=== PATIENT | female | born 1985 | race Caucasian/White ===

== ENCOUNTER 2017-04-12 08:06 | Inpatient (IN) ==
[2017-04-12] MEDS ORDERED: Ondansetron 4 MG/2 ML VIAL IVP ONE (08:32)
[2017-04-12] MEDS ORDERED: 0.9 % Sodium Chloride 1,000 ML IVC ONE (08:32)
--- NOTE | 2017-04-12 08:36 | Emergency Department Note ---
Disposition Clinical Impression: Pyelonephritis Disposition: Admitted As Inpatient Condition: Fair Referrals: Viraj Bear CNP [Primary Care Provider] - Forms: ED Satisfaction Letter Time of Disposition: 09:40 Female Urogenital HPI - General Chief complaint: ED Urogenital-Female Stated complaint: vomiting,side pain Time Seen by Provider: 04/12/17 08:22 Source: patient Mode of arrival: private vehicle Limitations: no limitations Nursing Notes Reviewed: Yes Vital Signs Reviewed: Yes - History of Present Illness HPI Narrative: 32-year-old female presents emergency department for evaluation of right flank pain. Patient developed symptoms of nausea approximately one week ago. She checked her urine and it was found to show evidence of urinary tract infection. Culture was positive for Escherichia coli and she was started on Cipro. The patient then developed right flank pain and had a CT scan of the abdomen done on Saturday of this past week which showed no evidence of hydronephrosis or obstructive uropathy. Patient was given a dose of Rocephin yesterday. Patient continues to have nausea vomiting associated with her symptoms. She states she has been running a low-grade fever of 99.9. She states she has had for urinary tract infections in the last year. - Related Data Home Medications Medication Instructions Recorded Confirmed Ibuprofen [Motrin] 800 mg PO TID PRN 05/01/16 04/12/17 Albuterol Sulfate [Proair Hfa] 2 puff IH Q4H PRN 05/02/16 04/12/17 Previous Rx's Medication Instructions Recorded Ciprofloxacin [Cipro] 500 mg PO BID #14 tablet 05/03/16 Allergies Allergy/AdvReac Type Severity Reaction Status Date / Time Sulfa (Sulfonamide Allergy Rash Verified 05/02/16 03:34 Antibiotics) Review of Systems: Constitutional: See history of present illness positive for fever HENT: [Negative for congestion.] Eyes: [Negative for discharge.] Respiratory: [Negative for shortness of breath.] Cardiovascular: [Negative for chest pain.] Gastrointestinal: Positive for nausea vomiting, right flank pain. Negative for diarrhea Endocrine: [Negative for excessive thirst,urination] Genitourinary: See history of present illness Musculoskeletal: [Negative for myalgias and arthralgias.] Skin: [Negative for rash.] Neurological: [Negative for dizziness, localized weakness and headaches.] Psychiatric/Behavioral: [Negative for nervous/anxious.] All other systems reviewed and are negative. Past Medical History - Past Medical History Medical history: Reports: asthma, kidney stones Surgical history: Reports: orthopedic, other Psychiatric history: Reports: PTSD [employer]IST history: Reports: other - Social History Smoking Status: Never smoker Smokeless Tobacco Status: No Alcohol use: Reports: occasionally Drug use: Reports: none Physical Exam Constitutional: Patient is [alert], [healthy], [comfortable] and cooperative. . The patient appears [asymptomatic], [nontoxic], and mildly ill. HENT: Head: Normocephalic and atraumatic. Right Ear: External ear normal. Left Ear: External ear normal. Nose: Nose normal. Mouth/Throat: Oropharynx is clear and mucous membranes show mild dehydration Eyes: Conjunctivae and EOM are normal. Pupils are equal, round, and reactive to light. Right eye exhibits [no] discharge. Left eye exhibits [no] discharge. Neck: Trachea is midline, normal range of motion and [phonation normal]. Neck supple. Cardiovascular: [Regular rhythm], S1 normal, S2 normal, normal heart sounds and intact distal pulses. Exam reveals no gallop and no friction rub. No murmur heard. [Capillary refill is brisk.] [Peripheral pulses are 2+] Pulmonary/Chest: Effort [normal] No stridor. [No] tachypnea. [No] respiratory distress. There are [no] decreased breath sounds. [There no wheezes, no rhonchi , or rales.] Abdominal: Soft. [Bowel sounds are normal]. There exhibits [no] distension and [no] mass. There is no hepatosplenomegaly. There is right upper quadrant tenderness, right CVA tenderness. There is [no rigidity, no rebound, no guarding]. Musculoskeletal: Normal range of motion of uninvolved extremities. There exhibits [no edema]. [ ] Neurological: Patient is alert. Patient displays no atrophy and no tremor. No cranial nerve deficit and exhibits normal muscle tone. Coordination normal. Skin: Skin is warm and dry. No rash noted. No erythema. [Skin color is normal.} Psychiatric: Patient has a normal mood and affect. Course Course Narrative: Time of physician change blood work and urinalysis still pending. I will transfer care to Dr. Ghotra who referred her to review the blood work and then speak with Dr. Loco about potential admission for intractable vomiting Vital Signs Temperature 98.5 F 04/12/17 08:14 Pulse Rate 68 04/12/17 08:14 Respiratory Rate 16 04/12/17 08:14 Blood Pressure 150/87 04/12/17 08:14 O2 Sat by Pulse Oximetry 100 04/12/17 08:14 Temperature 98.5 F 04/12/17 08:14 Pulse Rate 68 04/12/17 08:14 Respiratory Rate 16 04/12/17 08:14 Blood Pressure 150/87 04/12/17 08:14 O2 Sat by Pulse Oximetry 100 04/12/17 08:14 Oxygen Delivery Oxygen Delivery Room Air Urogenital-Female - Lab Data Result diagrams: 04/12/17 08:40 04/12/17 08:40 Lab Results 04/12/17 04/12/17 04/12/17 Range/Units 08:40 08:40 08:40 WBC 10.5 (4.3-11.1) K/mcL RBC 4.68 (3.82-4.97) M/mcL Hgb 15.3 (11.5-15.4) g/dL Hct 41.7 (35.3-44.9) % MCV 89.1 (83.0-100.0) fL MCH 32.7 (28.0-33.3) pg MCHC 36.7 H (31.6-35.5) g/dL RDW 11.9 (11.5-14.5) % Plt Count 217 (140-400) K/mcL MPV 10.7 (9.4-12.4) fL Immature Gran % 0.3 (0-4) % Seg Neutrophils % 73.8 % Lymphocytes % 14.5 % Monocytes % 10.2 % Eosinophils % 1.0 % Basophils % 0.2 % Neutrophils # 7.8 (1.6-8.9) K/mcL Lymphocytes # 1.5 (0.6-4.6) K/mcL Monocytes # 1.1 (0.0-1.3) K/mcL Eosinophils # 0.1 (0.0-0.6) K/mcL Basophils # 0.0 (0.0-0.2) K/mcL VBG Lactic Acid (0.5-2.2) mmol/L Sodium 141 (136-145) mEq/L Potassium 3.7 (3.5-4.5) mEq/L Chloride 107 (98-109) mEq/L Carbon Dioxide 23 (19-29) mEq/L BUN 16 (7-20) mg/dL Creatinine 1.93 H D (0.57-1.11) mg/dL Est GFR ( Amer) 36 L (> 60) Est GFR (Non-Af Amer) 30 L (> 60) BUN/Creatinine Ratio 8 (6-26) Glucose 93 (70-99) mg/dL Calculated Osmolality 293 (280-300) Calcium 9.3 (8.6-10.8) mg/dL Total Bilirubin 0.8 (0.2-1.2) mg/dL AST 19 (5-34) Units/L ALT 12 (0-55) Units/L Alkaline Phosphatase 51 (38-126) Units/L Serum Total Protein 7.0 (6.0-8.3) g/dL Albumin 4.2 (3.5-5.0) g/dL Globulin 2.8 (2.4-3.5) g/dL Albumin/Globulin Ratio 1.5 (1.1-2.2) Urine Color Yellow (Yellow) Urine Clarity Clear (Clear) Urine pH 6.0 (5.0-8.0) pH Units Ur Specific [place] 1.010 (1.010-1.025) Urine Protein Trace (Neg-Trace) mg/dL Urine Glucose (UA) Normal (Normal) mg/dL Urine Ketones 15 H (Negative) mg/dL Urine Blood Negative (Negative) Urine Nitrite Negative (Negative) Urine Bilirubin Negative (Negative) Urine Urobilinogen Normal (Normal) mg/dL Ur Leukocyte Esterase Negative (Negative) Ur Culture Indicated? NO (NO) Urine Test (Negative) 04/12/17 04/12/17 Range/Units 08:40 09:07 WBC (4.3-11.1) K/mcL RBC (3.82-4.97) M/mcL Hgb (11.5-15.4) g/dL Hct (35.3-44.9) % MCV (83.0-100.0) fL MCH (28.0-33.3) pg MCHC (31.6-35.5) g/dL RDW (11.5-14.5) % Plt Count (140-400) K/mcL MPV (9.4-12.4) fL Immature Gran % (0-4) % Seg Neutrophils % % Lymphocytes % % Monocytes % % Eosinophils % % Basophils % % Neutrophils # (1.6-8.9) K/mcL Lymphocytes # (0.6-4.6) K/mcL Monocytes # (0.0-1.3) K/mcL Eosinophils # (0.0-0.6) K/mcL Basophils # (0.0-0.2) K/mcL VBG Lactic Acid 1.6 (0.5-2.2) mmol/L Sodium (136-145) mEq/L Potassium (3.5-4.5) mEq/L Chloride (98-109) mEq/L Carbon Dioxide (19-29) mEq/L BUN (7-20) mg/dL Creatinine (0.57-1.11) mg/dL Est GFR ( Amer) (> 60) Est GFR (Non-Af Amer) (> 60) BUN/Creatinine Ratio (6-26) Glucose (70-99) mg/dL Calculated Osmolality (280-300) Calcium (8.6-10.8) mg/dL Total Bilirubin (0.2-1.2) mg/dL AST (5-34) Units/L ALT (0-55) Units/L Alkaline Phosphatase (38-126) Units/L Serum Total Protein (6.0-8.3) g/dL Albumin (3.5-5.0) g/dL Globulin (2.4-3.5) g/dL Albumin/Globulin Ratio (1.1-2.2) Urine Color (Yellow) Urine Clarity (Clear) Urine pH (5.0-8.0) pH Units Ur Specific [place] (1.010-1.025) Urine Protein (Neg-Trace) mg/dL Urine Glucose (UA) (Normal) mg/dL Urine Ketones (Negative) mg/dL Urine Blood (Negative) Urine Nitrite (Negative) Urine Bilirubin (Negative) Urine Urobilinogen (Normal) mg/dL Ur Leukocyte Esterase (Negative) Ur Culture Indicated? (NO) Urine Test Negative (Negative) - Radiology Data Radiology results reviewed: Yes I reviewed the patient's radiology results. CT scan report from Saturday04/10/2017 CT/CT abd pelvis wo no iv no oral IMPRESSION: Moderate amount of free pelvic fluid suspected to be from recent ovulation. Normal appendix. No right-sided renal calculus. 2 nonobstructing left renal calculi unchanged from the prior study. No other significant abnormality.
[2017-04-12 08:51] LABS: Basophils % 0.2 %; Eosinophils # 0.1 K/mcL (0.0-0.6); Hematocrit 41.7 % (35.3-44.9); Hemoglobin 15.3 g/dL (11.5-15.4); Immature Granulocytes % 0.3 % (0-4); Lymphocytes # 1.5 K/mcL (0.6-4.6); Lymphocytes % 14.5 %; Mean Corpuscular HGB Conc 36.7 g/dL (31.6-35.5); Mean Corpuscular Hemoglobin 32.7 pg (28.0-33.3); Mean Corpuscular Volume 89.1 fL (83.0-100.0); Mean Platelet Volume 10.7 fL (9.4-12.4); Monocytes # 1.1 K/mcL (0.0-1.3); Monocytes % 10.2 %; Neutrophils # 7.8 K/mcL (1.6-8.9); Platelet Count 217 K/mcL (140-400); Red Blood Count 4.68 M/mcL (3.82-4.97); Red Cell Distribution Width 11.9 % (11.5-14.5); Segmented Neutrophils % 73.8 %
[2017-04-12 08:54] LABS: Bilirubin,Urine Negative (Negative); Blood,Urine Negative (Negative); Clarity,Urine Clear (Clear); Color,Urine Yellow (Yellow); Glucose,Urine (UA) Normal (Normal); Ketones,Urine 15 mg/dL (Negative); Leukocyte Esterase,Urine Negative (Negative); Nitrite,Urine Negative (Negative); Protein,Urine Trace mg/dL (Neg-Trace); Urobilinogen,Urine Normal (Normal)
[2017-04-12] MEDS ORDERED: Ketorolac 30 MG/ML VIAL IVP ONE (08:56)
[2017-04-12 09:19] LABS: Albumin 4.2 g/dL (3.5-5.0); Albumin/Globulin Ratio 1.5 (1.1-2.2); Bilirubin,Total 0.8 mg/dL (0.2-1.2); Calcium 9.3 mg/dL (8.6-10.8); Globulin 2.8 g/dL (2.4-3.5); Potassium 3.7 mEq/L (3.5-4.5)
[2017-04-12] MEDS ORDERED: Naloxone 0.4 MG/ML INJ IVP PRN (10:23)
--- NOTE | 2017-04-12 10:40 | Emergency Department Note ---
Disposition Clinical Impression: Pyelonephritis Disposition: Admitted As Inpatient Condition: Fair Referrals: Viraj Bear CNP [Primary Care Provider] - Forms: ED Satisfaction Letter Female Urogenital HPI - General Chief complaint: ED Urogenital-Female Stated complaint: vomiting,side pain Time Seen by Provider: 04/12/17 08:22 Source: patient Mode of arrival: private vehicle Limitations: no limitations Nursing Notes Reviewed: Yes Vital Signs Reviewed: Yes - History of Present Illness HPI Narrative: Care was assumed by me at shift change. Please see Dr. Holley note. Ms. Marcelino tells me that last Saturday she had some right sided abdominal and flank pain felt feverish and nauseated. 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 (Indeed that sample did grow out Escherichia coli 100,000 sensitive to Cipro among others.) She was prescribed ciprofloxacin and continued to take the Cipro at 250 mg twice a day but yesterday had increased nausea and vomiting. She has had 3 times emesis with very little by mouth intake. Because she was not tolerating by mouth intake she received an injection of Rocephin last night around 7 PM in the office where she works. She continues to be nauseated even after 4 mg IV here in the emergency department. She also had a abdominal pelvic CAT scan done as an outpatient here couple of days ago which was unremarkable for any right sided pathology. Incidental note was made of a calcification in the left kidney. One year ago she had a 5 mm stone retrieved. She has been having issues with 2 times a year urinary tract infections for the last 10 years or so. She rarely if ever has any classic symptoms of cystitis such as urgency dysuria or frequency. She did have the passage of some gross visible blood on urination just a couple of days ago. She denies any diarrhea. She tells me that she actually has issues with constipation. - Related Data Home Medications Medication Instructions Recorded Confirmed Ibuprofen [Motrin] 800 mg PO TID PRN 05/01/16 04/12/17 Albuterol Sulfate [Proair Hfa] 2 puff IH Q4H PRN 05/02/16 04/12/17 Previous Rx's Medication Instructions Recorded Ciprofloxacin [Cipro] 500 mg PO BID #14 tablet 05/03/16 Allergies Allergy/AdvReac Type Severity Reaction Status Date / Time Sulfa (Sulfonamide Allergy Rash Verified 05/02/16 03:34 Antibiotics) Constitutional: Reports: chills Gastrointestinal: Reports: abdominal pain, nausea, vomiting, constipation. Denies: diarrhea Genitourinary: Reports: hematuria. 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 Absent: distention, guarding, rebound, rigidity, Jensen's sign Abdominal tenderness: Absent: RUQ - Extremities Exam Extremities exam: Present: normal inspection. Absent: pedal edema - Back Exam Back exam: Present: CVA tenderness (R). Absent: CVA tenderness (L) - Neurological Exam Neurological exam: Present: alert - Psychiatric Psychiatric exam: Present: normal affect, normal mood - Skin Skin exam: Present: warm, dry Course Vital Signs Temperature 98.5 F 04/12/17 08:14 Pulse Rate 68 04/12/17 08:14 Respiratory Rate 16 04/12/17 08:14 Blood Pressure 150/87 04/12/17 08:14 O2 Sat by Pulse Oximetry 100 04/12/17 08:14 Temperature 98.5 F 04/12/17 08:14 Pulse Rate 68 04/12/17 08:14 Respiratory Rate 16 04/12/17 08:14 Blood Pressure 150/87 04/12/17 08:14 O2 Sat by Pulse Oximetry 100 04/12/17 08:14 Oxygen Delivery Oxygen Delivery Room Air Urogenital-Female - MDM Narrative Medical decision making narrative: Pyelonephritis. Positive Escherichia coli culture with typical distribution of pain. Somewhat unusual that she does not have antecedent cystitis symptoms. Nonetheless she remains nauseated and actually reported a wave of nausea just sitting up for my physical examination. She has by mouth Zofran at home and his R he tried this. It would be prudent to have her come into the hospital for IV fluids and IV Zofran and IV antibiotics. She will be due for a dose of Rocephin tonight around 6:00. I spoke with the covering physician and presented the case. He accepted admission. I spoke with that management and Brian who told me to place in observation. Miss Marcelino is in stable condition as she awaits transfer to the floor. - Medical Records Medical records reviewed: Yes I reviewed the patient's medical records. - Lab Data Lab results reviewed: Yes I reviewed the patient's lab results. Result diagrams: 04/12/17 08:40 04/12/17 08:40 Lab Results 04/12/17 04/12/17 04/12/17 Range/Units 08:40 08:40 08:40 WBC 10.5 (4.3-11.1) K/mcL RBC 4.68 (3.82-4.97) M/mcL Hgb 15.3 (11.5-15.4) g/dL Hct 41.7 (35.3-44.9) % MCV 89.1 (83.0-100.0) fL MCH 32.7 (28.0-33.3) pg MCHC 36.7 H (31.6-35.5) g/dL RDW 11.9 (11.5-14.5) % Plt Count 217 (140-400) K/mcL MPV 10.7 (9.4-12.4) fL Immature Gran % 0.3 (0-4) % Seg Neutrophils % 73.8 % Lymphocytes % 14.5 % Monocytes % 10.2 % Eosinophils % 1.0 % Basophils % 0.2 % Neutrophils # 7.8 (1.6-8.9) K/mcL Lymphocytes # 1.5 (0.6-4.6) K/mcL Monocytes # 1.1 (0.0-1.3) K/mcL Eosinophils # 0.1 (0.0-0.6) K/mcL Basophils # 0.0 (0.0-0.2) K/mcL VBG Lactic Acid (0.5-2.2) mmol/L Sodium 141 (136-145) mEq/L Potassium 3.7 (3.5-4.5) mEq/L Chloride 107 (98-109) mEq/L Carbon Dioxide 23 (19-29) mEq/L BUN 16 (7-20) mg/dL Creatinine 1.93 H D (0.57-1.11) mg/dL Est GFR ( Amer) 36 L (> 60) Est GFR (Non-Af Amer) 30 L (> 60) BUN/Creatinine Ratio 8 (6-26) Glucose 93 (70-99) mg/dL Calculated Osmolality 293 (280-300) Calcium 9.3 (8.6-10.8) mg/dL Total Bilirubin 0.8 (0.2-1.2) mg/dL AST 19 (5-34) Units/L ALT 12 (0-55) Units/L Alkaline Phosphatase 51 (38-126) Units/L Serum Total Protein 7.0 (6.0-8.3) g/dL Albumin 4.2 (3.5-5.0) g/dL Globulin 2.8 (2.4-3.5) g/dL Albumin/Globulin Ratio 1.5 (1.1-2.2) Urine Color Yellow (Yellow) Urine Clarity Clear (Clear) Urine pH 6.0 (5.0-8.0) pH Units Ur Specific [place] 1.010 (1.010-1.025) Urine Protein Trace (Neg-Trace) mg/dL Urine Glucose (UA) Normal (Normal) mg/dL Urine Ketones 15 H (Negative) mg/dL Urine Blood Negative (Negative) Urine Nitrite Negative (Negative) Urine Bilirubin Negative (Negative) Urine Urobilinogen Normal (Normal) mg/dL Ur Leukocyte Esterase Negative (Negative) Ur Culture Indicated? NO (NO) Urine Test (Negative) 04/12/17 04/12/17 Range/Units 08:40 09:07 WBC (4.3-11.1) K/mcL RBC (3.82-4.97) M/mcL Hgb (11.5-15.4) g/dL Hct (35.3-44.9) % MCV (83.0-100.0) fL MCH (28.0-33.3) pg MCHC (31.6-35.5) g/dL RDW (11.5-14.5) % Plt Count (140-400) K/mcL MPV (9.4-12.4) fL Immature Gran % (0-4) % Seg Neutrophils % % Lymphocytes % % Monocytes % % Eosinophils % % Basophils % % Neutrophils # (1.6-8.9) K/mcL Lymphocytes # (0.6-4.6) K/mcL Monocytes # (0.0-1.3) K/mcL Eosinophils # (0.0-0.6) K/mcL Basophils # (0.0-0.2) K/mcL VBG Lactic Acid 1.6 (0.5-2.2) mmol/L Sodium (136-145) mEq/L Potassium (3.5-4.5) mEq/L Chloride (98-109) mEq/L Carbon Dioxide (19-29) mEq/L BUN (7-20) mg/dL Creatinine (0.57-1.11) mg/dL Est GFR ( Amer) (> 60) Est GFR (Non-Af Amer) (> 60) BUN/Creatinine Ratio (6-26) Glucose (70-99) mg/dL Calculated Osmolality (280-300) Calcium (8.6-10.8) mg/dL Total Bilirubin (0.2-1.2) mg/dL AST (5-34) Units/L ALT (0-55) Units/L Alkaline Phosphatase (38-126) Units/L Serum Total Protein (6.0-8.3) g/dL Albumin (3.5-5.0) g/dL Globulin (2.4-3.5) g/dL Albumin/Globulin Ratio (1.1-2.2) Urine Color (Yellow) Urine Clarity (Clear) Urine pH (5.0-8.0) pH Units Ur Specific [place] (1.010-1.025) Urine Protein (Neg-Trace) mg/dL Urine Glucose (UA) (Normal) mg/dL Urine Ketones (Negative) mg/dL Urine Blood (Negative) Urine Nitrite (Negative) Urine Bilirubin (Negative) Urine Urobilinogen (Normal) mg/dL Ur Leukocyte Esterase (Negative) Ur Culture Indicated? (NO) Urine Test Negative (Negative) - Radiology Data Radiology results reviewed: Yes I reviewed the patient's radiology results.
[2017-04-12] MEDS: Ondansetron 4 MG/2 ML VIAL IVP SCH ×3 (12:14→22:38)
[2017-04-12] MEDS: D5% in 0.45% NACL 1,000 ML IVC SCH ×2 (12:14→22:42)
[2017-04-12] MEDS ORDERED: *HR* Meperidine 25 MG/ML SYRINGE IVP PRN ×2 (12:53→13:11)
--- NOTE | 2017-04-12 13:26 | Internal Med History&Physical ---
Date of Encounter: 04/12/17 Time of Encounter: 13:00 Internal Medicine - H&P: HPI Chief complaint: Patient presented to the emergency room nausea and vomiting and right flank Admitted From: Emergency Dept Plans for Post Hospital Care: Home History of present illness: Ms. Marcelino is a 32 year old female Week's worth of nausea and vomiting along with a UTI. Past Med Surg Social Fam HX - Past Medical History Medical history: asthma, kidney stones Psychiatric history: PTSD - Past Surgical History Surgical History: orthopedic, other - Social History Smoking Status: Never smoker Smokeless Tobacco Status: No Alcohol use: occasionally Drug use: none - Family History Mother Living Status: Still Living Hx Family Cardiac Disorders: No Hx Family Respiratory Disorders: No Hx Family Cancer: No Hx Family GI Disorders: No Hx Family Endocrine Disorder: Yes (hypothyroidism) Hx Family Neuromuscular Disorders: No Hx Family Neurologic Disorders: No Hx Family HEENT Disorders: No Hx Family Autoimmune Disorders: No Father Living Status: Hx Family Cardiac Disorders: Yes (Enlarged heart) Hx Family Respiratory Disorders: No Hx Family Cancer: No Hx Family GI Disorders: No Hx Family Endocrine Disorder: No Hx Family Neuromuscular Disorders: No Hx Family Neurologic Disorders: No Hx Family HEENT Disorders: No Hx Family Autoimmune Disorders: No Internal Medicine - H&P: Meds Ibuprofen [Motrin] 800 mg PO TID PRN 05/01/16 [History] Albuterol Sulfate [Proair Hfa] 2 puff IH Q4H PRN 05/02/16 [History] Ciprofloxacin [Cipro] 500 mg PO BID #14 tablet 05/03/16 [Rx] Allergies Sulfa (Sulfonamide Antibiotics) Allergy (Verified 05/02/16 03:34) Rash All Systems PM: A 10-system review of systems was performed and is negative for pertinent findings except as documented above in the HPI. - Constitutional Vitals: Temp Pulse Resp BP Pulse Ox 98.0 F 54 16 133/95 98 04/12/17 12:23 04/12/17 11:34 04/12/17 12:23 04/12/17 12:23 04/12/17 11:34 - Head Head exam: Present: atraumatic, normal inspection, normocephalic - Neck Neck exam general surgery: Present: supple, trachea midline. Absent: lymphadenopathy Internal Med - H&P Results - Labs CBC & Chem 7: 04/12/17 08:40 04/12/17 08:40
[2017-04-12] MEDS ORDERED: *HR* Meperidine 50 MG/ML SYRINGE IVP PRN (13:45)
--- NOTE | 2017-04-12 20:39 | Internal Med History&Physical ---
Date of Encounter: 04/12/17 Time of Encounter: 19:49 Assessment and Plan (1) Acute pyelonephritis Current visit: Yes Status: Acute 32-year-old woman with known history of recurring kidney stones and infections is now admitted with right sided flank pain, positive urine culture of Escherichia coli, nausea, vomiting, lightheadedness, acute kidney injury from dehydration. She is failed outpatient treatment twice in the office twice in the ER. She failed improvement despite use of Cipro and Rocephin. She is feeling better after IV fluids, parenteral pain control and antiemetic. We will continue with IV fluids, Rocephin and symptomatically relief. She has been admitted to an inpatient status and will continue treatment until she is able to be ambulatory, tolerate po medications and have pain under control. Another urine culture was sent in the ER. Blood cultures have been sent after she was admitted. (2) Acute kidney injury Current visit: Yes Status: Acute Her creatinine had jumped from 0.89 to 1.93 and GFR is down to 30. Likely this is prerenal. She does not have hydronephrosis or acute ureteral stone. She is receiving IV fluids and follow creatinine will be checked in the morning. (3) Urinary tract infection Current visit: No Status: Acute Urinary tract infection growing Escherichia coli sensitive to all of the tested antibiotics. Qualifiers: Urinary tract infection type: acute pyelonephritis Qualified Code(s): N10 - Acute pyelonephritis (4) Calculus of kidney Current visit: No Status: Acute History of recurring kidney stones and ureterolithiasis. Recent CT shows 2 stones in the left kidney without hydronephrosis. That does not seem to be bothering her at the present time as her symptoms are right-sided. Internal Medicine - H&P: HPI Chief complaint: My kidney pain is worse and I am lightheaded Admitted From: Emergency Dept Plans for Post Hospital Care: Home History of present illness: Ms. Marcelino is a 32 year old female with known history of recurring nephrolithiasis was admitted from the emergency room with pyelonephritis. Last week she had nausea and did not feel well and had achiness in her back area. On Saturday, 4 days ago, she had right-sided flank pain, positive nitrites on a urine dip in the office and was started on Cipro. That night she had bright red blood in her urine and felt that she was passing a stone. The right- sided flank pain continued, and came in waves and she used Zofran for the nausea. She had marked decreased po intake. She started Flomax that day as well. She was evaluated in the emergency room that night and did not repeat any urine testing, do any blood work etc. On Saturday, 2 days prior to admission, she had CT scan which showed 2 kidney stones in the left kidney. Nothing on the right side. Her culture was positive for Escherichia coli and she was continued with Cipro. On , one day prior to admission, she had marked decreased po intake, that night developed nausea and vomiting. She was given Rocephin IM in the office. Through night and this morning she had nausea, vomiting, chills, temp of 99.9 max (fever may have been masked with her ibuprofen). She started to get lightheaded when she was standing and had vertiginous symptoms. She had a little bit of confusion as well when she came to the office this morning for a reevaluation. She was sent to the emergency room for further evaluation. Clinically she was thought to be having acute pyelonephritis. IV fluids were initiated as well as intravenous pain medication. Since then she is feeling better after IV fluids, IV Demerol and Zofran. She has had low bit of ice chips and broth but that made her nauseated and did not feel well. She is not taking by mouth well this point. Her pain however went down from an 8 to a 4 out of 10 range with her pain medication and is now back up to the 8 out of 10 range. She has had previous right kidney stone removal with lithotripsy and basket retrieval and stent placement nearly a year ago. There is a very significant family history for multiple members in her close family having kidney stone problems. Past Med Surg Social Fam HX - Past Medical History Medical history: asthma, kidney stones, other (Polycystic ovaries) Psychiatric history: PTSD - Past Surgical History Surgical History: orthopedic, other (Left knee arthroscopy per Dr. Sparrow), ureteral stent (Lithotripsy, basket retrieval and stent in the right ureter 05/04) - Social History Smoking Status: Former smoker Smokeless Tobacco Status: No Alcohol use: occasionally Drug use: none Occupational status: employed (Employed at [employer] as an [employer]) Recent Out of Country Travel Within the Last 8 Weeks: No Exposure or Possible Exposure to Illness During Travel: No - Family History Mother Living Status: Still Living Hx Family Cardiac Disorders: No Hx Family Respiratory Disorders: No Hx Family Cancer: No Hx Family GI Disorders: No Hx Family Endocrine Disorder: Yes (hypothyroidism) Hx Family Neuromuscular Disorders: No Hx Family Neurologic Disorders: No Hx Family HEENT Disorders: No Hx Family Autoimmune Disorders: No Father Living Status: Cause of : Alcoholism Hx Family Cardiac Disorders: Yes (Enlarged heart) Hx Family Respiratory Disorders: No Hx Family Cancer: No Hx Family GI Disorders: No Hx Family Endocrine Disorder: No Hx Family Neuromuscular Disorders: No Hx Family Neurologic Disorders: No Hx Family HEENT Disorders: No Hx Family Autoimmune Disorders: No Internal Medicine - H&P: Meds Ibuprofen [Motrin] 800 mg PO TID PRN 05/01/16 [History] Albuterol Sulfate [Proair Hfa] 2 puff IH Q4H PRN 05/02/16 [History] Ciprofloxacin [Cipro] 500 mg PO BID #14 tablet 05/03/16 [Rx] Etonogestrel [Nexplanon] 68 mg ONCE 04/12/17 [History] Lactobacillus [Culturelle] 1 each PO DAILY PRN 04/12/17 [History] Loratadine [Claritin] 10 mg PO DAILY PRN 04/12/17 [History] Montelukast [Singulair] 10 mg PO DAILY PRN 04/12/17 [History] Ondansetron [Zofran] 8 mg PO Q8HR PRN 04/12/17 [History] clonazePAM [Klonopin] 0.5 mg PO 1-2XD PRN 04/12/17 [History] Allergies Sulfa (Sulfonamide Antibiotics) Allergy (Verified 05/02/16 03:34) Rash - Constitutional Constitutional: anorexia, chills, fatigue, malaise, weakness - EENT Eyes: no loss of vision Ears: no ear discharge, no ear pain Nose, mouth and throat: dry mouth, no neck pain, no sore throat - Cardiovascular Cardiovascular ROS IM: no chest pain, no dyspnea - Respiratory Respiratory: no cough, no dyspnea, no chest congestion - Gastrointestinal Gastrointestinal: cramping, nausea, vomiting, no diarrhea, no hematochezia, no melena - Genitourinary Genitourinary: hematuria (Hematuria was noted on Saturday night, none since then) , no dysuria, no pelvic pain, no urinary frequency, no urinary incontinence, no urinary urgency Menstruation: other (She has Nexplanon and has only a very few irregular breakthrough bleeding type periods in a year) - Musculoskeletal Musculoskeletal ROS IM: back pain (Complaint right flank pain and localizing over the right lower rib cage in the mid axillary line. A bit of tenderness on the left side under the ribs as well possibly from vomiting), myalgias, no neck pain - Integumentary Integumentary IM: no rash, no jaundice - Neurological Neurological ROS: confusion (She felt things were a bit "off" this morning when she came to the office), dizziness (This more she had dizziness when she was standing) - Psychiatric Psychiatric: no depression - Hematologic/Lymphatic Hematologic/Lymphatic: no easy bruising, no lymphadenopathy - Constitutional Vitals: Temp Pulse Resp BP Pulse Ox 97.9 F 72 16 113/71 100 04/12/17 16:00 04/12/17 16:00 04/12/17 16:00 04/12/17 16:00 04/12/17 16:00 General appearance: Present: cooperative, mild distress, A&O X 3, answers questions appropriately - Eye Eye exam: Present: PERRL. Absent: scleral icterus - ENT ENT exam: Present: mucous membranes moist, normal oropharynx, TM's normal bilaterally - Neck Neck exam general surgery: Absent: lymphadenopathy, tenderness, nuchal rigidity - Respiratory Respiratory exam: Present: CTAB. Absent: respiratory distress - Cardiovascular Cardiovascular exam: Present: RRR, +S1, +S2. Absent: gallop, systolic murmur - GI/Abdominal GI/Abdominal exam: Present: normal bowel sounds, tenderness (Right flank tenderness from the CVA area to the right mid axillary line to the right side of the abdomen.). Absent: guarding, hepatomegaly, mass, rebound, rigid Additional comments: She had mild tenderness in the inferior portion of the left lower rib cage flank area - Extremities Exam Extremities exam: Absent: calf tenderness, pedal edema - Back Exam Back exam: Present: CVA tenderness (R), tenderness (Right flank area CVA region midaxillary line and right upper quadrant of the abdomen) - Neurological Exam Neurological exam: Present: CN II-XII intact, strengths equal and symetr throughout - Psychiatric Psychiatric exam: Present: normal affect, normal mood Internal Med - H&P Results - Labs CBC & Chem 7: 04/12/17 08:40 04/12/17 08:40 Labs: labs have been reviewed. Creatinine has risen from 0.89-1.93. Her urine cultures positive for Escherichia coli sensitive to all of the tested antibiotics.
[2017-04-12] MEDS ORDERED: Ondansetron 4 MG/2 ML VIAL IVP SCH (21:15)
[2017-04-12] MEDS: 0.9 % Sodium Chloride 1,000 ML IVC SCH (21:18)
[2017-04-12] MEDS: Ondansetron 4 MG/2 ML VIAL IVP PRN (21:37)
[2017-04-12] MEDS: *HR* Meperidine 50 MG/ML SYRINGE IVP PRN (21:38)
[2017-04-13] MEDS: Ondansetron 4 MG/2 ML VIAL IVP PRN ×3 (04:35→17:29)
[2017-04-13] MEDS: *HR* Meperidine 50 MG/ML SYRINGE IVP PRN (04:36)
[2017-04-13] MEDS: 0.9 % Sodium Chloride 1,000 ML IVC SCH ×3 (04:52→21:31)
[2017-04-13 05:34] LABS: Basophils % 0.3 %; Eosinophils # 0.2 K/mcL (0.0-0.6); Eosinophils % 2.6 %; Hematocrit 33.9 % (35.3-44.9); Hemoglobin 12.2 g/dL (11.5-15.4); Immature Granulocytes % 0.3 % (0-4); Lymphocytes # 1.5 K/mcL (0.6-4.6); Lymphocytes % 23.4 %; Mean Corpuscular Hemoglobin 32.3 pg (28.0-33.3); Mean Corpuscular Volume 89.7 fL (83.0-100.0); Mean Platelet Volume 10.8 fL (9.4-12.4); Monocytes # 0.5 K/mcL (0.0-1.3); Neutrophils # 4.2 K/mcL (1.6-8.9); Platelet Count 194 K/mcL (140-400); Red Blood Count 3.78 M/mcL (3.82-4.97); Red Cell Distribution Width 11.8 % (11.5-14.5); Segmented Neutrophils % 65.4 %
[2017-04-13 05:43] LABS: Calcium 8.2 mg/dL (8.6-10.8); Potassium 3.7 mEq/L (3.5-4.5)
[2017-04-13] MEDS ORDERED: *HR* Enoxaparin 30 MG/0.3 ML SYRINGE SQ SCH (06:00)
[2017-04-13] MEDS: Ketorolac 30 MG/ML VIAL IVP PRN ×2 (10:15→17:29)
[2017-04-13] MEDS: *HR* Promethazine 25 MG/ML VIAL IVP PRN ×2 (10:21→19:44)
--- NOTE | 2017-04-13 13:23 | Internal Med Progress Note ---
Date of Encounter: 04/13/17 Time of Encounter: 13:00 - Assessment and plan (1) Acute kidney injury Current Visit: Yes Status: Acute Assessment and plan: Creatinine much improved with rehydration. We will continue IV fluids. Pharmacy has suggested that we stop Demerol due to her renal function. Optins reviewed with patient, will switch to PO hydrocodone. (2) Acute pyelonephritis Current Visit: Yes Status: Acute Assessment and plan: Improving. WBC decreased this AM. Continue Rocephin, may go home on Augmentin. May have developed resistance to Cipro during treatment. Remains afebrile. (3) Calculus of kidney Current Visit: No Status: Acute Assessment and plan: History of this illness suggest that she had a R sided ureteral stone that past prior to her recent CT scan. - Time Spent With Patient 25 - 35 minutes - Subjective Interval history: The patient reports she is feeling better today. No nausea at rest but did experience this with walking to the bathroom. Had chills this AM but no fever. Denies hematuria or dysuria. Taking liquids OK but feels she is not ready for solid food yet. Pain in R flank and RUQ much decreased. She feels the Toradol gave her better relief than the Demerol. Nursing reports that her pain has been well controlled. - Constitutional Vitals: Temp Pulse Resp BP Pulse Ox 98.0 F 51 16 95/57 100 04/13/17 11:55 04/13/17 11:55 04/13/17 11:55 04/13/17 11:55 04/13/17 11:55 General appearance: Present: cooperative, mild distress, A&O X 3, answers questions appropriately - Respiratory Respiratory exam: Present: CTAB. Absent: accessory muscle use, rales, respiratory distress, rhonchi, wheezes - Cardiovascular Cardiovascular exam: Present: RRR, +S1, +S2. Absent: diastolic murmur, gallop, rubs, systolic murmur - GI/Abdominal GI/Abdominal exam: Present: normal bowel sounds, soft, tenderness, no peritoneal signs. Absent: distended, rebound Additional comments: Mild RUQ tenderness without guarding or rebound. - Back Exam Back exam: Present: CVA tenderness (R) - Psychiatric Psychiatric exam: Present: normal affect, normal mood - Skin Skin exam: Present: dry, intact. Absent: erythema, rash Internal Medicine: Result - Labs CBC & Chem 7: 04/13/17 04:50 04/13/17 04:50 Labs: Short CBC 04/13/17 Range/Units 04:50 WBC 6.5 (4.3-11.1) K/mcL Hgb 12.2 D (11.5-15.4) g/dL Hct 33.9 L (35.3-44.9) % Plt Count 194 (140-400) K/mcL Neutrophils # 4.2 (1.6-8.9) K/mcL BMP 04/13/17 04:50 Sodium 143 Potassium 3.7 Chloride 112 H Carbon Dioxide 23 BUN 10 Creatinine 1.34 H Glucose 86 Calcium 8.2 L Consult Discharge Plan - Plan Referrals: Viraj Bear, DAVIN [Primary Care Provider] -
[2017-04-14] MEDS: *HR* Enoxaparin 40 MG/0.4 ML SYRINGE SQ SCH (05:11)
[2017-04-14] MEDS: 0.9 % Sodium Chloride 1,000 ML IVC SCH ×3 (05:19→22:02)
[2017-04-14] MEDS: Ketorolac 30 MG/ML VIAL IVP PRN (05:41)
[2017-04-14] MEDS: Ondansetron 4 MG/2 ML VIAL IVP PRN ×2 (08:08→13:17)
[2017-04-14] MEDS: *HR* HYDROcodone/Acet 5/325 mg TABLET PO PRN ×3 (08:11→18:05)
[2017-04-14 11:53] LABS: BUN/Creatinine Ratio 9 (6-26); Blood Urea Nitrogen 8 mg/dL (7-20); Calcium 8.1 mg/dL (8.6-10.8); Carbon Dioxide 24 mEq/L (19-29); Chloride 111 mEq/L (98-109); Glucose 84 mg/dL (70-99); Osmolality,Calculated 292 (280-300); Potassium 3.8 mEq/L (3.5-4.5); Sodium 142 mEq/L (136-145); eGFR For African Americans > 60 (> 60); eGFR For Non-African Americans > 60 (> 60)
--- NOTE | 2017-04-14 12:33 | Discharge Summary ---
Date of Encounter: 04/14/17 Time of Encounter: 12:10 - Discharge Diagnosis (1) Acute kidney injury Status: Acute (2) Acute pyelonephritis Status: Acute (3) Calculus of kidney Status: Acute - Discharge Medications Home Medications: Ibuprofen [Motrin] 800 mg PO TID PRN 05/01/16 [History] Albuterol Sulfate [Proair Hfa] 2 puff IH Q4H PRN 05/02/16 [History] Ciprofloxacin [Cipro] 500 mg PO BID #14 tablet 05/03/16 [Rx] Etonogestrel [Nexplanon] 68 mg ONCE 04/12/17 [History] Lactobacillus [Culturelle] 1 each PO DAILY PRN 04/12/17 [History] Loratadine [Claritin] 10 mg PO DAILY PRN 04/12/17 [History] Montelukast [Singulair] 10 mg PO DAILY PRN 04/12/17 [History] Ondansetron [Zofran] 8 mg PO Q8HR PRN 04/12/17 [History] clonazePAM [Klonopin] 0.5 mg PO 1-2XD PRN 04/12/17 [History] Allergies/Adverse Reactions: Allergies Sulfa (Sulfonamide Antibiotics) Allergy (Verified 05/02/16 03:34) Rash Date of admission: 04/12/17 17:02 Primary care physician: Viraj Bear CNP - Patient Status Condition: Fair - Discharge Instructions Follow Up With: Viraj Bear CNP [Primary Care Provider] - Hospital course: Ms. Marcleino is a 32 year old female - Time Spent with Patient Total time spent providing and/or coordinating discharge services: - Constitutional Vitals: Temp Pulse Resp BP Pulse Ox 97.4 F L 83 20 99/55 95 04/14/17 07:21 04/14/17 07:21 04/14/17 07:21 04/14/17 07:21 04/14/17 07:21 General appearance: Present: cooperative, mild distress, A&O X 3, answers questions appropriately
--- NOTE | 2017-04-14 12:37 | Internal Med Progress Note ---
Date of Encounter: 04/14/17 Time of Encounter: 12:10 - Assessment and plan (1) Acute kidney injury Current Visit: Yes Status: Acute Assessment and plan: Renal function is normalized with IV hydration and treatment of her infection. Urine output is adequate. She is still not taking by mouth well however and I will continue the IV fluids. (2) Acute pyelonephritis Current Visit: Yes Status: Acute Assessment and plan: She has been afebrile. We will continue the Rocephin. With a CVA tenderness persisting and poor appetite and significant symptoms with ambulation she I mutually agreed she would benefit from another day in the hospital. Risks of sending her home today would be worsening infection as she has experienced as an outpatient prior to her inpatient care. (3) Calculus of kidney Current Visit: No Status: Acute Assessment and plan: Pain has improved. CT did not show a stone would be causing her current symptoms , I think her pain is from pyelonephritis. (4) Hypocalcemia Current Visit: Yes Status: Acute Assessment and plan: etiology is unclear. We will probably follow this as an outpatient. - Subjective Interval history: The patient reports continued overall slow improvement. She says she does not have pain or nausea at rest. However she gets up to the bathroom she still experiences right flank pain and nausea followed is that. She's had poor oral intake. She ate some candy this morning but did not touch her lunch tray. She continues with IV fluids. She denies abdominal pain. She says it does not burn when she urinates but she does get some right CVA aching with urination. She denies hematuria. She is trying to ambulate some as she knows she is at risk for blood clots. She is on Lovenox. - Constitutional Vitals: Temp Pulse Resp BP Pulse Ox 97.4 F L 83 20 99/55 95 04/14/17 07:21 04/14/17 07:21 04/14/17 07:21 04/14/17 07:21 04/14/17 07:21 General appearance: Present: cooperative, A&O X 3, pleasant, no acute distress, answers questions appropriately - ENT ENT exam: Present: mucous membranes moist - Respiratory Respiratory exam: Present: CTAB. Absent: accessory muscle use, rales, respiratory distress, rhonchi, wheezes Additional comments: She still has definite right sided CVA tenderness. - Cardiovascular Cardiovascular exam: Present: RRR, +S1, +S2. Absent: diastolic murmur, gallop, rubs, systolic murmur, tachycardia - GI/Abdominal GI/Abdominal exam: Present: normal bowel sounds, soft, no peritoneal signs. Absent: distended, guarding, rebound, tenderness Additional comments: Right upper quadrant tenderness noted yesterday has resolved this morning. - Expanded Lower Extremities Exam Lower Leg exam: Absent: erythema, Kalpesh's sign, palpable cord, swelling, tenderness Internal Medicine: Result - Labs CBC & Chem 7: 04/13/17 04:50 04/14/17 10:38 Labs: Creatinine is now normal. Calcium is still low. BMP 04/14/17 10:38 Sodium 142 Potassium 3.8 Chloride 111 H Carbon Dioxide 24 BUN 8 Creatinine 0.90 Glucose 84 Calcium 8.1 L Consult Discharge Plan - Plan Referrals: Viraj Bear, [facility] [employer] [Primary Care Provider] -
[2017-04-15] MEDS: Ondansetron 4 MG/2 ML VIAL IVP PRN (05:24)
[2017-04-15] MEDS: *HR* Enoxaparin 40 MG/0.4 ML SYRINGE SQ SCH (05:24)
[2017-04-15] MEDS: *HR* HYDROcodone/Acet 5/325 mg TABLET PO PRN (05:24)
[2017-04-15] MEDS: 0.9 % Sodium Chloride 1,000 ML IVC SCH (06:08)
--- NOTE | 2017-04-15 07:08 | Discharge Summary ---
Date of Encounter: 04/15/17 Time of Encounter: 07:04 - Discharge Diagnosis (1) Acute pyelonephritis Priority: Primary Status: Acute Comments: Patient was admitted on Saturday having been in the ER twice and in the office twice with UTI and subsequent pyelonephritis. She had severe pain, nausea, vomiting, anorexia, acute kidney injury and failed outpatient treatment with Cipro. She continued right flank pain despite treatment with Cipro. Urine culture showed Escherichia coli sensitive to all tested antibiotics. She required parenteral analgesia and antiemetic, IV fluids and rest. On day of discharge she still had some right sided flank pain but much improved. She still required Hico as well as Zofran for symptomatically relief. She had had no vomiting in the past 24 hours. She has been eating adequately well. Her renal function is now normal. She had no fever the entire time. Blood pressure stable. Examination as below. Partial be discharged to home today. She will finish off her Cipro. She has Zofran at home and I have prescribed Hico for when necessary use. She is to follow-up with Dr. Harrington in follow- up with Veronica Tyson her PCP. (2) Acute kidney injury Priority: Secondary Status: Resolved Comments: On admission her creatinine had gone from 0.85 and 1.93. After fluid/ rehydration her creatinine is now back to baseline at 0.9. Likely it was all prerenal. She is taking fluids and and nourishment well now. She knows to avoid NSAIDs when she is having nausea and vomiting/dehydration signs. (3) Urinary tract infection Priority: Secondary Status: Acute Comments: Her urine culture grew Escherichia coli sensitive to all of the tested antibiotics. She had been on Cipro and was given Rocephin IM as an outpatient. She had continued pain, nausea, vomiting, acute kidney injury in signs of dehydration. Her blood cultures were negative (however they were not done until after admission and receiving antibiotics). She had no fever the entire time she was hospitalized. She will follow-up with Dr. Harrington. Qualifiers: Urinary tract infection type: acute pyelonephritis Qualified Code(s): N10 - Acute pyelonephritis (4) Calculus of kidney Priority: Secondary Status: Chronic Comments: She is to kidney stones in the left kidney, uncomplicated. No hydronephrosis, no significant pain on the left side. No stones seen on the right side, though she may have passed it early on. She will follow up with Dr. Harrington - Discharge Medications Prescriptions: HYDROcodone/Acet 5/325 mg [Hico 5-325 mg] 1 tab PO Q4HR PRN #30 tab PRN Reason: Moderate Pain Home Medications: Albuterol Sulfate [Proair Hfa] 2 puff IH Q4H PRN 05/02/16 [History] Ciprofloxacin [Cipro] 500 mg PO BID #14 tablet 05/03/16 [Rx] Etonogestrel [Nexplanon] 68 mg ONCE 04/12/17 [History] Lactobacillus [Culturelle] 1 each PO DAILY PRN 04/12/17 [History] Loratadine [Claritin] 10 mg PO DAILY PRN 04/12/17 [History] Montelukast [Singulair] 10 mg PO DAILY PRN 04/12/17 [History] Ondansetron [Zofran] 8 mg PO Q8HR PRN 04/12/17 [History] clonazePAM [Klonopin] 0.5 mg PO 1-2XD PRN 04/12/17 [History] HYDROcodone/Acet 5/325 mg [Hico 5-325 mg] 1 tab PO Q4HR PRN #30 tab 04/15/17 [ Rx] Allergies/Adverse Reactions: Allergies Sulfa (Sulfonamide Antibiotics) Allergy (Verified 05/02/16 03:34) Rash Procedures/tests Complete & Pending: Laboratory Tests 04/12/17 04/12/17 04/12/17 08:40 08:40 08:40 WBC 10.5 RBC 4.68 Hgb 15.3 Hct 41.7 MCV 89.1 MCH 32.7 MCHC 36.7 H RDW 11.9 Plt Count 217 MPV 10.7 Immature Gran % 0.3 Seg Neutrophils % 73.8 Lymphocytes % 14.5 Monocytes % 10.2 Eosinophils % 1.0 Basophils % 0.2 Neutrophils # 7.8 Lymphocytes # 1.5 Monocytes # 1.1 Eosinophils # 0.1 Basophils # 0.0 VBG Lactic Acid Sodium 141 Potassium 3.7 Chloride 107 Carbon Dioxide 23 BUN 16 Creatinine 1.93 H D Est GFR ( Amer) 36 L Est GFR (Non-Af Amer) 30 L BUN/Creatinine Ratio 8 Glucose 93 POC Glucose Calculated Osmolality 293 Calcium 9.3 Total Bilirubin 0.8 AST 19 ALT 12 Alkaline Phosphatase 51 Serum Total Protein 7.0 Albumin 4.2 Globulin 2.8 Albumin/Globulin Ratio 1.5 Urine Color Yellow Urine Clarity Clear Urine pH 6.0 Ur Specific [place] 1.010 Urine Protein Trace Urine Glucose (UA) Normal Urine Ketones 15 H Urine Blood Negative Urine Nitrite Negative Urine Bilirubin Negative Urine Urobilinogen Normal Ur Leukocyte Esterase Negative Ur Culture Indicated? NO Urine Test 04/12/17 04/12/17 04/12/17 08:40 09:07 11:41 WBC RBC Hgb Hct MCV MCH MCHC RDW Plt Count MPV Immature Gran % Seg Neutrophils % Lymphocytes % Monocytes % Eosinophils % Basophils % Neutrophils # Lymphocytes # Monocytes # Eosinophils # Basophils # VBG Lactic Acid 1.6 Sodium Potassium Chloride Carbon Dioxide BUN Creatinine Est GFR ( Amer) Est GFR (Non-Af Amer) BUN/Creatinine Ratio Glucose POC Glucose 77 Calculated Osmolality Calcium Total Bilirubin AST ALT Alkaline Phosphatase Serum Total Protein Albumin Globulin Albumin/Globulin Ratio Urine Color Urine Clarity Urine pH Ur Specific Gu[place] Urine Protein Urine Glucose (UA) Urine Ketones Urine Blood Urine Nitrite Urine Bilirubin Urine Urobilinogen Ur Leukocyte Esterase Ur Culture Indicated? Urine Test Negative 04/13/17 04/13/17 04/14/17 04:50 04:50 10:38 WBC 6.5 RBC 3.78 L Hgb 12.2 D Hct 33.9 L MCV 89.7 MCH 32.3 MCHC 36.0 H RDW 11.8 Plt Count 194 MPV 10.8 Immature Gran % 0.3 Seg Neutrophils % 65.4 Lymphocytes % 23.4 Monocytes % 8.0 Eosinophils % 2.6 Basophils % 0.3 Neutrophils # 4.2 Lymphocytes # 1.5 Monocytes # 0.5 Eosinophils # 0.2 Basophils # 0.0 VBG Lactic Acid Sodium 143 142 Potassium 3.7 3.8 Chloride 112 H 111 H Carbon Dioxide 23 24 BUN 10 8 Creatinine 1.34 H 0.90 Est GFR ( Amer) 56 L > 60 Est GFR (Non-Af Amer) 46 L > 60 BUN/Creatinine Ratio 7 9 Glucose 86 84 POC Glucose Calculated Osmolality 294 292 Calcium 8.2 L 8.1 L Total Bilirubin AST ALT Alkaline Phosphatase Serum Total Protein Albumin Globulin Albumin/Globulin Ratio Urine Color Urine Clarity Urine pH Ur Specific [place] Urine Protein Urine Glucose (UA) Urine Ketones Urine Blood Urine Nitrite Urine Bilirubin Urine Urobilinogen Ur Leukocyte Esterase Ur Culture Indicated? Urine Test Date of admission: 04/12/17 17:02 Primary care physician: Viraj Bear CNP Discharging clinician: Tyrel Loco Anticipated date of discharge: 04/15/17 - Patient Status Disposition: Home, Self-Care Condition: Good Functional capacity at discharge: independent ambulation Overall status at discharge: patient is progressing back to baseline - Discharge Instructions Follow Up With: Veronica Tyson CNP [Advanced Practice Nurse] - Marquis Harrington MD [Partnered Physician] - - Diet and Activity Activity: increase activity as tolerated Diet: advance to your usual diet Interval History: For the past 24 hours the patient has been markedly improved. She is required analgesia and antiemetic one time. No vomiting since Saturday. Her pain is more manageable. This morning when she had to go to the bathroom, she had right sided flank pain "like my kidney was squeezing out the urine" and she had related nausea. No hematuria. No dysuria. She is now eating and drinking well. She is able to ambulate and not be lightheaded. Her vitals are stable. Hospital course: Ms. Marcelino is a 32 year old female with known history of recurring UTIs, recurring kidney stones and ureteral lithiasis was admitted on Saturday having felt outpatient treatment for UTI of Escherichia coli. She had developed nausea , vomiting, acute kidney injury, dehydration signs and failed treatment in the ER twice and outpatient twice despite Cipro and Rocephin. She was admitted to the hospital on Saturday and improved with IV hydration, IV Rocephin, IV parenteral pain control and antiemetic. Her blood cultures were negative( however they were done after she was admitted and had had antibiotics). This morning she is markedly improved and feels like this can be managed as an outpatient for pain control and follow-up with Dr. Harrington. Please see the above diagnoses. - Time Spent with Patient Total time spent providing and/or coordinating discharge services: - Constitutional Vitals: Temp Pulse Resp BP Pulse Ox 97.9 F 53 15 104/59 97 04/15/17 05:19 04/15/17 05:19 04/15/17 05:19 04/15/17 05:19 04/15/17 05:19 General appearance: Present: cooperative, A&O X 3, pleasant, no acute distress, answers questions appropriately - Respiratory Respiratory exam: Present: CTAB - Cardiovascular Cardiovascular exam: Present: RRR, +S1, +S2. Absent: systolic murmur - GI/Abdominal Additional comments: She continues to have right CVA tenderness, right flank tenderness in the mid axillary line below the ribs, and slightly into the right side of the abdomen. None on the left side. Overall the tenderness is much improved from admission. Bowel sounds are normal. There is no abdominal distention. There is no guarding or rebound or rigidity. - Extremities Exam Extremities exam: Absent: calf tenderness, pedal edema
[2017-04-15 07:16] VITALS: BP 106/64
== END 2017-04-15 11:20 | disposition home or self-care (01) | DRG 690 ==
LOC: EMEROOGRE 08:06 → INPGRE 08:06
PROVIDERS: ADMIT Family Medicine; ATTEND Family Medicine